=== PATIENT | female | born 1995 | race Caucasian/White ===

== ENCOUNTER 2022-11-03 14:15 | Outpatient (REF) | payer OTHER, MEDICAID, SELFPAY ==
[2022-11-03 14:54] LABS: MANUAL DIFF FLAG NO
[2022-11-03 15:21] LABS: Basophils Absolute Auto 0.1 X10*3/uL (0.0-0.2); Basophils Percent Auto 0.9 % (0-2); Eosinophils Absolute Auto 0.2 X10*3/uL (0.0-0.4); Eosinophils Percent Auto 2.4 % (0-4); Hematocrit 42.7 % (37.0-47.0); Hemoglobin 13.7 g/dl (12.0-16.0); Imm Gran Abs Auto 0.02 X10*3/uL (0.00-0.03); Imm Gran Pct Auto 0.3 % (0.0-0.4); Lymphocytes Absolute Auto 2.8 X10*3/uL (1.2-4.9); Lymphocytes Percent Auto 38.1 % (20-40); Mean Corpuscular HGB Conc 32.1 g/dl (31.0-35.0); Mean Corpuscular Hemoglobin 27.6 pg (27.0-33.0); Mean Corpuscular Volume 86.1 fL (80.0-98.0); Monocytes Absolute Auto 0.3 X10*3/uL (0.1-1.2); Neutrophils Absolute Auto 4.1 x10*3/uL (2.0-8.3); Neutrophils Percent Auto 54.3 % (45-73); Platelet Count 470 X10*3/uL (160-400); Red Blood Count 4.96 X10*6/uL (4.20-5.50); White Blood Count 7.5 X10*3/uL (4.8-10.8)
[2022-11-03 16:06] LABS: Alanine Aminotransferase 29 U/L (0-31); Albumin Level 4.2 g/dL (3.5-5.0); Alkaline Phosphatase 79 U/L (39-117); Anion Gap 14 (12-20); Aspartate Amino Transferase 31 U/L (5-31); Bilirubin Total 0.6 mg/dL (0.0-1.0); Blood Urea Nitrogen 9 mg/dL (9-16); Calcium 9.5 mg/dL (8.4-10.2); Carbon Dioxide 26 mmol/L (22-29); Chloride 105 mmol/L (96-108); Cholesterol 201 mg/dL; Estimated Glomerular Filt Rate > 60; Glucose Random 83 mg/dL (60-115); HDL Cholesterol 31 mg/dL; LDL Cholesterol Calculated 144 mg/dl; Potassium 4.8 mmol/L (3.3-5.1); Sodium 140 mmol/L (135-145); Total Protein 7.6 g/dL (6.5-8.0); Triglycerides 133 mg/dL
[2022-11-03 16:21] LABS: Thyroid Stimulating Hormone 3.09 uIU/mL (0.32-4.0)
[2022-11-04 06:03] LABS: ~Hepatitis B Surface Antibody NONREACTIVE (Nonreactive)
[2022-11-04 22:53] LABS: Mumps Virus IgG Antibody <9.00 AU/mL; Rubella IgG Antibody <0.90 Index
[2022-11-09 10:41] LABS: TSpotTB Invalid (Negative)
== END 2022-11-03 14:16 | disposition home or self-care (01) ==
LOC: HO.LAB 14:15
PROVIDERS: PCP Internal Medicine; Visit Provider Internal Medicine
DX: E66.01 Morbid (severe) obesity due to excess calories (principal); F31.76 Bipolar disorder, in full remission, most recent episode depressed; G47.33 Obstructive sleep apnea (adult) (pediatric); I10 Essential (primary) hypertension; R19.5 Other fecal abnormalities; R19.7 Diarrhea, unspecified
CPT/HCPCS: 36415; 80053; 80061; 84443; 85025; 86481; 86706; 86735; 86762; 86765; 86787

== ENCOUNTER 2022-12-02 11:46 | Outpatient (REF) | payer OTHER, SELFPAY ==
[2022-12-05 07:39] LABS: TS Negative Control Passed; TS Panel A 0; TS Panel B 1; TS Positive Control Passed; TSpotTB Negative (Negative)
== END 2022-12-02 11:47 | disposition home or self-care (01) ==
LOC: HO.LAB 11:46
PROVIDERS: PCP Internal Medicine; Visit Provider Internal Medicine
DX: Z11.1 Encounter for screening for respiratory tuberculosis (principal)
CPT/HCPCS: 36415; 86481

== ENCOUNTER 2023-03-16 08:18 | Day surgery (SDC) | payer OTHER, SELFPAY ==
--- NOTE | 2023-03-15 13:23 | HO.ANESPROP2 ---
HPI - Anesthesia Eval Consult details Narrative: 27yo F for Colonoscopy PMFSH Past Medical History Medical History Asthma Bipolar disorder Foot drop Hyperlipemia Migraines HORACE (obstructive sleep apnea) Patellar sleeve fracture of left knee Surgical History Surgical History H/O wisdom tooth extraction Social History Social History Patient Tobacco Use Status: Never used Tobacco Are you DNR?: No Advance Directives: No Advance Directives Information Provided: Yes Meds Allergies Allergy/AdvReac Type Severity Reaction Status Date / Time amoxicillin [From Augmentin] Allergy Unknown Verified 03/15/23 13:38 clavulanic acid Allergy Unknown Verified 03/15/23 13:38 [From Augmentin] Home Medications Medication Instructions Recorded Confirmed Last Taken Type Tylenol 03/15/23 03/15/23 03/14/23 History meloxicam 15 mg tablet 15 mg PO DAILY 03/15/23 03/16/23 12/28/22 History nitroglycerin 0.1 mg/hr 1 patch topical DAILY 03/15/23 03/15/23 02/09/23 History transdermal 24 hour patch Exam Exam Date and Time: March 15, 2023 1323 Pertinent Lab Results Pertinent Lab Results: Laboratory Tests 11/03/22 11/03/22 14:51 14:51 WBC 7.5 Hgb 13.7 Hct 42.7 Plt Count 470 H Sodium 140 Potassium 4.8 Chloride 105 Carbon Dioxide 26 BUN 9 Creatinine 0.75 Assessment and Plan Assessment Anesthesia Assessment: Chart Reviewed
[2023-03-16 08:58] VITALS: BMI 38.0
[2023-03-16 09:23] VITALS: BP 119/79; PULSE 101; RESP 20; TEMP 36.3; O2SAT 95
[2023-03-16 09:52] LABS: UPreg QC Valid YES; Urine Pregnancy NEGATIVE (NEGATIVE)
[2023-03-16] MEDS: Lactated Ringers 1,000 ML 100 ML IVCONT (09:52)
--- NOTE | 2023-03-16 11:03 | MHC.SHP ---
Pre-Procedural Eval Section A Date of Service: 03/16/23 The patient is an INPATIENT: No Changes since office visit: No Cold of Flu in the past 2 weeks, No New Medical Problems, No Changes in Medication and No Patient answered all questions The History & Physical has been completed within 30 days and I have reviewed it.: Yes Section B Chief Complaint: rectal bleeding,Other specified symptoms and signs Allergies: Allergies Allergy/AdvReac Type Severity Reaction Status Date / Time amoxicillin [From Augmentin] Allergy Unknown Verified 03/15/23 13:38 clavulanic acid Allergy Unknown Verified 03/15/23 13:38 [From Augmentin] Plan I have reviewed the history and physical and performed a pertinent physical examination on my patient. No changes have occurred unless specified. Time Spent With Patient Time: Total time managing care of this patient today ____ minutes.
--- NOTE | 2023-03-16 11:27 | P.CONAN_ITS ---
[facility] Past Medical History Medical History Asthma Bipolar disorder Foot drop Hyperlipemia Migraines HORACE (obstructive sleep apnea) Patellar sleeve fracture of left knee Functional capacity: independent ambulation Surgical History Surgical History H/O wisdom tooth extraction Social History Social History Patient Tobacco Use Status: Never used Tobacco Are you DNR?: No Advance Directives: No Advance Directives Information Provided: Yes Meds Allergies Allergy/AdvReac Type Severity Reaction Status Date / Time amoxicillin [From Augmentin] Allergy Unknown Verified 03/15/23 13:38 clavulanic acid Allergy Unknown Verified 03/15/23 13:38 [From Augmentin] Active Medications: Current Medications Albuterol Sulfate (Albuterol Sulfate (0.083%) 2.5 Mg/3 Ml Vial.Neb) 2.5 mg INHALE ONCE PRN PRN Reason: Shortness of Breath/Wheezing Lactated Ringer's (Lr) 1,000 mls @ 100 mls/hr IVCONT .Q10H JOE Last Admin: 03/16/23 09:52 Dose: 100 mls/hr Home Medications Medication Instructions Recorded Confirmed Last Taken Type Tylenol 03/15/23 03/15/23 03/14/23 History meloxicam 15 mg tablet 15 mg PO DAILY 03/15/23 03/16/23 12/28/22 History nitroglycerin 0.1 mg/hr 1 patch topical DAILY 03/15/23 03/15/23 02/09/23 History transdermal 24 hour patch Exam Exam Date and Time: March 16, 2023 1127 Height,Weight and Vital Signs: Height 5 ft 8 in Weight 113.398 kg Last Vital Signs Temp 97.3 F 03/16/23 09:23 Pulse 101 H 03/16/23 09:23 Resp 20 03/16/23 09:23 BP 119/79 03/16/23 09:23 Pulse Ox 95 03/16/23 09:23 O2 Del Method Room Air 03/16/23 09:23 Pertinent Lab Results Pertinent Lab Results: Laboratory Tests 03/16/23 09:20 Urine Test NEGATIVE Airway Mallampati Class: III TM Dist: >3cm Neck ROM: Full Heart: RRR Lungs: CTA Assessment and Plan Assessment Anesthesia Assessment: Anesthesia Plan Discussed Final Anesthetic Review ASA Class: III Final Preanesthetic Review: Meds/Allgs Chart Reviewed, Consent Obtained/Reviewed and Anes Risks/Benef Reviewed Patient Risk: Low Procedure Risk: Low Anesthetic Plan Anesthetic Plan: MAC: Disposition: Standard PACU
--- NOTE | 2023-03-16 11:37 | P.BOP_ITS ---
Brief Operative Note Date of Service: 03/16/23 Pre-op diagnosis: recatl bleeding change in bowels Post-op diagnosis: same Surgeon: Alvin Silva Anesthesia: MAC Was an Stamping Mill Tender used for this Procedure?: No Estimated blood loss (mL): 2 Pathology: other Condition: stable Disposition: PACU
[2023-03-16 11:41] VITALS: BP 98/69; PULSE 83; RESP 16; TEMP 36.7; O2SAT 95
[2023-03-16 11:56] VITALS: BP 107/59; PULSE 72; RESP 18; O2SAT 99
[2023-03-16 12:11] VITALS: BP 114/74; PULSE 66; RESP 18; TEMP 36.9; O2SAT 99
--- NOTE | 2023-03-16 12:11 | HO.POSTANES ---
Post Anesthesia Evaluation Post Anesthesia Evaluation Date of Service: 03/16/23 Vital Signs: Vital Signs Temp Pulse Resp BP Pulse Ox O2 Del Method 03/16/23 11:56 72 18 107/59 L 99 Room Air 03/16/23 11:41 98.1 F 83 16 98/69 95 Room Air 03/16/23 09:23 97.3 F 101 H 20 119/79 95 Room Air Anesthesia: Monitored Mental Status: Awake Pain Control: Satisfactory Nausea/Vomiting: None Hydration: Adequate Anesthesia-Related Issues: No Anes. Related Issues
--- NOTE | 2023-03-16 12:17 | OP_ITS ---
DATE OF SERVICE: 03/16/2023 SURGEON: Alvin Silva MD INDICATIONS: Change in bowel movements and rectal bleeding. PREOPERATIVE DIAGNOSIS: POSTOPERATIVE DIAGNOSIS: PROCEDURE PERFORMED: Colonoscopy to the terminal ileum with biopsy. ESTIMATED BLOOD LOSS: COMPLICATIONS: ANESTHESIA: Monitored anesthesia care. ASSISTANTS: SPECIMENS: DESCRIPTION OF PROCEDURE: A history and physical was performed. The risks and benefits of the procedure were explained to the patient. Informed consent was obtained. The patient was placed in the left lateral decubitus position. A digital rectal examination was performed and was found to be normal. The Olympus pediatric video colonoscope was introduced into the rectum and advanced to the cecum. The cecum was identified by transillumination, palpation, and identification of ileocecal valve. Examination was performed. The scope was removed. She tolerated the procedure well and was retuned to the recovery area in stable condition. FINDINGS: The terminal ileum was examined and appeared normal. The visualized colonic mucosa was normal. From 0 to 20 cm, there was a mild proctitis/colitis with inflammatory changes including erythema, edema, and loss of vascular pattern and some mild superficial ulceration. Biopsies were obtained from the ileum and from throughout the colon as well as the abnormal rectal mucosa. The overall appearance was that of possible inflammatory bowel disease, Crohn disease, more likely than ulcerative colitis. Retroflexed examination was otherwise normal. IMPRESSION: Colitis. RECOMMENDATION: Follow up the biopsy results. MD DAXA Hook/FERNANOD / [id number]
== END 2023-03-16 13:02 | disposition home or self-care (01) ==
PROVIDERS: Nurse Practitioner; PCP Internal Medicine; Visit Provider Internal Medicine Gastroenterology
PROC: 0DJD8ZZ Inspection of Lower Intestinal Tract, Via Natural or Artificial Opening Endoscopic (ICD-10-PCS; CPT 45378; principal; 2023-03-16 10:20)
DX: K52.9 Noninfective gastroenteritis and colitis, unspecified (principal); K62.5 Hemorrhage of anus and rectum; R19.8 Other specified symptoms and signs involving the digestive system and abdomen; E78.5 Hyperlipidemia, unspecified; E66.9 Obesity, unspecified; Z68.38 Body mass index [BMI] 38.0-38.9, adult; Z79.899 Other long term (current) drug therapy
CPT/HCPCS: 45380; 81025; 88305

== ENCOUNTER 2023-11-04 14:37 | Outpatient (REF) | payer MEDICAID, SELFPAY ==
[2023-11-04 15:41] LABS: Basophils Absolute Auto 0.1 X10*3/uL (0.0-0.2); Basophils Percent Auto 0.7 % (0-2); Eosinophils Absolute Auto 0.1 X10*3/uL (0.0-0.4); Eosinophils Percent Auto 1.2 % (0-4); Hematocrit 42.4 % (37.0-47.0); Hemoglobin 13.5 g/dl (12.0-16.0); Imm Gran Abs Auto 0.02 X10*3/uL (0.00-0.03); Imm Gran Pct Auto 0.3 % (0.0-0.4); Lymphocytes Absolute Auto 2.4 X10*3/uL (1.2-4.9); Lymphocytes Percent Auto 32.7 % (20-40); MANUAL DIFF FLAG SCAN; Mean Corpuscular HGB Conc 31.8 g/dl (31.0-35.0); Mean Corpuscular Hemoglobin 26.6 pg (27.0-33.0); Mean Corpuscular Volume 83.5 fL (80.0-98.0); Mean Platelet Volume 11.7 fL (9.4-12.3); Monocytes Absolute Auto 0.5 X10*3/uL (0.1-1.2); Monocytes Percent Auto 6.1 % (2-11); Neutrophils Absolute Auto 4.3 x10*3/uL (2.0-8.3); PLT CLUMP 1; Red Blood Count 5.08 X10*6/uL (4.20-5.50); Red Cell Distribution Width 13.2 % (11.0-16.0); SCAN SMEAR FLAG 1
[2023-11-04 15:56] LABS: White Blood Count 7.3 X10*3/uL (4.8-10.8)
[2023-11-04 15:57] LABS: Platelet Count 337 X10*3/uL (160-400); SLIDE REVIEW VERIFIED
[2023-11-04 16:06] LABS: Alanine Aminotransferase 22 U/L (0-31); Albumin Level 4.2 g/dL (3.5-5.0); Alkaline Phosphatase 79 U/L (39-117); Anion Gap 13 (12-20); Aspartate Amino Transferase 24 U/L (5-31); Bilirubin Total 0.4 mg/dL (0.0-1.0); Blood Urea Nitrogen 9 mg/dL (9-16); Calcium 9.6 mg/dL (8.4-10.2); Carbon Dioxide 27 mmol/L (22-29); Chloride 104 mmol/L (96-108); Estimated Glomerular Filt Rate > 60; Glucose Random 91 mg/dL (60-115); Potassium 3.5 mmol/L (3.3-5.1); Sodium 140 mmol/L (135-145); Total Protein 8.5 g/dL (6.5-8.0)
== END 2023-11-04 14:38 | disposition home or self-care (01) ==
LOC: HO.LAB 14:37
PROVIDERS: PCP Internal Medicine; Visit Provider Internal Medicine
DX: Z00.00 Encounter for general adult medical examination without abnormal findings (principal); F31.76 Bipolar disorder, in full remission, most recent episode depressed; G47.33 Obstructive sleep apnea (adult) (pediatric); K51.90 Ulcerative colitis, unspecified, without complications
CPT/HCPCS: 36415; 80053; 85025

== ENCOUNTER 2024-04-07 11:20 | Day surgery (SDC) | payer MEDICAID, SELFPAY ==
--- NOTE | 2024-04-07 11:38 | HO.ANESPROP2 ---
HPI - Anesthesia Eval Consult details Narrative: for colon PMFSH Past Medical History Medical History Foot drop Patellar sleeve fracture of left knee HORACE (obstructive sleep apnea) Hyperlipemia Bipolar disorder Asthma Migraines Family History Family history of problems with anesthesia: No Surgical History Surgical History H/O wisdom tooth extraction History of Problems with Anesthesia: No Social History Social History Patient Tobacco Use Status: Never used Tobacco Advance Directives: No Advance Directives Information Provided: Yes Meds Allergies Allergy/AdvReac Type Severity Reaction Status Date / Time amoxicillin [From Augmentin] Allergy Unknown Verified 03/15/23 13:38 clavulanic acid Allergy Unknown Verified 03/15/23 13:38 [From Augmentin] Home Medications ?Medication ?Instructions ?Recorded ?Confirmed ?Last Taken ?Type Tylenol 03/15/23 03/15/23 03/14/23 History meloxicam 15 mg tablet 15 mg PO DAILY 03/15/23 03/16/23 12/28/22 History nitroglycerin 0.1 mg/hr 1 patch topical DAILY 03/15/23 03/15/23 02/09/23 History transdermal 24 hour patch Exam Airway Mallampati Class: II TM Dist: >3cm Neck ROM: Full Heart: rrr Lungs: cta Assessment and Plan Assessment Anesthesia Assessment: Anesthesia Plan Discussed Final Anesthetic Review Family History of Problems with Anesthesia: No History of Problems with Anesthesia: No NPO: Yes ASA Class: II Final Preanesthetic Review: No Changes in Pt Med Stat, Meds/Allgs Chart Reviewed, Consent Obtained/Reviewed and Anes Risks/Benef Reviewed Patient Risk: Low Procedure Risk: Low Anesthetic Plan Anesthetic Plan: MAC: Disposition: Standard PACU
[2024-04-07 11:53] VITALS: BP 124/87; PULSE 96; RESP 16; TEMP 35.8; O2SAT 95; BMI 38.1
--- NOTE | 2024-04-07 11:57 | MHC.SHP ---
Pre-Procedural Eval Section A - 24 Hr Update-Section A only Date of Service: 04/07/24 The patient is an INPATIENT: No Changes since office visit: No Cold of Flu in the past 2 weeks, No New Medical Problems, No Changes in Medication and No Patient answered all questions The patient has been examined within 24 hours of the surgical procedure. The History & Physical has been completed within 30 days and I have reviewed it.: Yes Section B - Complete if H&P > 30 days Chief Complaint: Crohn's disease of large intestine with abscess Allergies: Allergies Allergy/AdvReac Type Severity Reaction Status Date / Time amoxicillin [From Augmentin] Allergy Unknown Verified 03/15/23 13:38 clavulanic acid Allergy Unknown Verified 03/15/23 13:38 [From Augmentin] Plan I have reviewed the history and physical and performed a pertinent physical examination on my patient. No changes have occurred unless specified. Time Spent With Patient Time: Total time managing care of this patient today ____ minutes.
[2024-04-07] MEDS: Lactated Ringers 1,000 ML 100 ML IVCONT (12:00)
--- NOTE | 2024-04-07 12:48 | PC.NURSE ---
report received from raisa olmos rn to be aware of lab results, to give endo rn report and verify signatures complete on consents.
[2024-04-07 13:02] LABS: HCG Quantitative < 2 mIU/mL
[2024-04-07 13:40] VITALS: BP 101/43; PULSE 78; RESP 16; TEMP 36.2; O2SAT 94
[2024-04-07 13:55] VITALS: BP 114/74; PULSE 72; RESP 18; O2SAT 98
[2024-04-07 14:10] VITALS: BP 112/80; PULSE 78; RESP 18; TEMP 36.3; O2SAT 97
--- NOTE | 2024-04-08 00:55 | OP_ITS ---
DATE OF SERVICE: 04/07/2024 SURGEON: Alvin Silva MD INDICATIONS: History of inflammatory bowel disease, likely Crohn disease with perirectal abscesses and drainage procedure. PREOPERATIVE DIAGNOSIS: POSTOPERATIVE DIAGNOSIS: PROCEDURE PERFORMED: Colonoscopy to the terminal ileum with biopsy. ESTIMATED BLOOD LOSS: COMPLICATIONS: ANESTHESIA: Monitored anesthesia care. ASSISTANTS: SPECIMENS: DESCRIPTION OF PROCEDURE: A history and physical was performed. The risks and benefits of the procedure were explained to the patient. Informed consent was obtained. The patient was placed in the left lateral decubitus position. A careful digital rectal examination was performed. Avoiding the open abscess drainage sites. There was some nodularity at the anal verge with induration. No abscess was felt. The Olympus pediatric video colonoscope was introduced into the rectum and advanced to the cecum without difficulty. The cecum was identified by transillumination, palpation, and identification of ileocecal valve. Examination was performed. The scope was removed. She tolerated the procedure well. She returned to the recovery area in stable condition. FINDINGS: The terminal ileum appeared normal. This was biopsied. The visualized colonic mucosa was normal until about 20 to 25 cm in the rectosigmoid where there was edema and erythema and loss of vascular pattern with some nodularity in the rectum. No definite fistula tract was identified. Biopsies were obtained from throughout the colon and appearance appeared consistent with Crohn disease involving the perianal area and the rectosigmoid. Retroflexed examination showed some nodularity, but again no fistulous tract could be identified. IMPRESSION: Crohn disease involving the perianal and rectosigmoid. RECOMMENDATION: 1. Follow up the biopsy results. 2. Begin Humira. MD DAXA Hook/NEFTALIL / [id number]
== END 2024-04-07 14:43 | disposition home or self-care (01) ==
PROVIDERS: Anesthesiology; PCP Internal Medicine; Visit Provider Internal Medicine Gastroenterology
PROC: 0DJD8ZZ Inspection of Lower Intestinal Tract, Via Natural or Artificial Opening Endoscopic (ICD-10-PCS; CPT 45378; principal; 2024-04-07 13:30)
DX: K50.114 Crohn's disease of large intestine with abscess (principal); G43.909 Migraine, unspecified, not intractable, without status migrainosus; J45.990 Exercise induced bronchospasm; F31.9 Bipolar disorder, unspecified; F43.10 Post-traumatic stress disorder, unspecified; Z79.1 Long term (current) use of non-steroidal anti-inflammatories (NSAID); Z79.899 Other long term (current) drug therapy; Z88.1 Allergy status to other antibiotic agents; Z98.890 Other specified postprocedural states; Z56.0 Unemployment, unspecified
CPT/HCPCS: 45380; 36415; 84702; 88305; J2704; J3010